=== PATIENT | female | born 1930 | race African-American/Black ===

== ENCOUNTER → 2017-09-01 | Outpatient (CLI) | payer MEDICARE, MEDICAID ==
[~2017-09-01] MED LIST: AMLO10TA4 PO; CHOL500010 PO; CYAN10009 PO; DOCU-150 PO; FOLI0.8T PO; LOP25 PO; METH2.5T PO; NAPR-679 PO; OMEP20CA10 PO; ROSU5TAB PO
== END | disposition home or self-care (01) ==
LOC: MAMMO 08:59
PROVIDERS: ATTEND Internal Medicine Nephrology
DX: Z12.31 Encounter for screening mammogram for malignant neoplasm of breast (principal)
CPT/HCPCS: 77067

== ENCOUNTER 2017-11-23 18:28 | Emergency (ER) | payer MEDICARE, MEDICAID ==
[~2017-11-23] VITALS: Ht 182.9 cm; Wt 77.0 kg
[2017-11-23] MEDS ORDERED: ONDANSETRON HCL 4MG/2ML VIAL IV STA (18:43)
[2017-11-23] MEDS ORDERED: SODIUM CHLORIDE 0.9% 500 ML IV ONE (18:43)
[2017-11-23] MEDS ORDERED: MECLIZINE 25MG TABLET PO ONE (18:45)
[2017-11-23 19:05] LABS: BASOPHILS % 0.9 % (0.0-2.0); CHLORIDE 106 mEq/L (98-107); EOSINOPHILS % 2.1 % (0.0-5.0); HEMOGLOBIN. 13.1 g/dL (12.0-16.0); LYMPHOCYTES % 14.3 % (20.0-50.0); MEAN CORPUSCULAR HEMOGLOBIN 27.1 pg (28.0-32.0); MEAN CORPUSCULAR VOLUME 82.8 fL (81.0-99.0); MEAN PLATELET VOLUME 8.5 fl (7.4-10.4); MONOCYTES % 6.9 % (2.0-8.0); NEUTROPHILS % 75.8 % (40.0-76.0); PLATELET 306 x1000/uL (130-400); RED BLOOD CELL COUNT 4.83 mill/uL (4.2-5.4); RED CELL DISTRIBUTION WIDTH 15.7 % (11.6-14.6)
[2017-11-23 19:07] LABS: INR 1.1; PROTHROMBIN TIME 11.4 sec (9.4-11.6)
[2017-11-23 23:00] VITALS: BP 155/77
== END 2017-11-23 23:12 | disposition home or self-care (01) ==
LOC: ER 18:28
DX: H81.399 Other peripheral vertigo, unspecified ear (principal); K21.9 Gastro-esophageal reflux disease without esophagitis; E78.00 Pure hypercholesterolemia, unspecified; I10 Essential (primary) hypertension; Z88.2 Allergy status to sulfonamides; Z88.0 Allergy status to penicillin; Z91.09 Other allergy status, other than to drugs and biological substances
CPT/HCPCS: 36415; 70450; 71045; 80053; 82962; 83880; 84484; 85025; 85610; 93005; 96361; 96374; 99285; J2405; J7030; J8597

== ENCOUNTER 2017-12-06 03:21 | Emergency (ER) | payer MEDICARE, MEDICAID ==
[~2017-12-06] VITALS: Ht 182.9 cm; Wt 80.0 kg
[2017-12-06] MEDS ORDERED: MECLIZINE 25MG TABLET PO ONE (04:30)
[2017-12-06] MEDS ORDERED: ONDANSETRON 4MG ODT PO ONE (04:30)
[2017-12-06 06:30] VITALS: BP 153/78
== END 2017-12-06 06:50 | disposition home or self-care (01) ==
LOC: ER 03:21
DX: R42 Dizziness and giddiness (principal); I10 Essential (primary) hypertension; E78.00 Pure hypercholesterolemia, unspecified; K21.9 Gastro-esophageal reflux disease without esophagitis; Z88.0 Allergy status to penicillin; Z88.2 Allergy status to sulfonamides; Z90.89 Acquired absence of other organs; Z79.899 Other long term (current) drug therapy
CPT/HCPCS: 99283; Q0162; J8597

== ENCOUNTER 2019-09-01 11:36 | Emergency (ER) | payer MEDICARE, MEDICAID ==
[~2019-09-01] VITALS: Ht 182.9 cm; Wt 77.2 kg
[~2019-09-01 11:36] MED LIST changes: +CYAN-50 PO; -CYAN10009 PO; -OMEP20CA10 PO; +OMEP20CA14 PO
[2019-09-01 14:18] LABS: BASOPHILS % 0.4 % (0.0-2.0); EOSINOPHILS % 0.7 % (0.0-5.0); HEMATOCRIT. 38.9 % (36.0-48.0); HEMOGLOBIN. 12.5 g/dL (12.0-16.0); LYMPHOCYTES % 10.1 % (20.0-50.0); MEAN CORPUSCULAR HEMOGLOBIN 26.9 pg (28.0-32.0); MEAN CORPUSCULAR VOLUME 83.9 fL (81.0-99.0); MEAN PLATELET VOLUME 8.7 fl (7.4-10.4); MONOCYTES % 9.5 % (2.0-8.0); NEUTROPHILS % 79.3 % (40.0-76.0); PLATELET 289 x1000/uL (130-400); RED BLOOD CELL COUNT 4.64 mill/uL (4.2-5.4); RED CELL DISTRIBUTION WIDTH 15.7 % (11.6-14.6)
[2019-09-01 14:24] LABS: CHLORIDE 103 mEq/L (98-107)
[2019-09-01 14:25] LABS: INR 1.1; PROTHROMBIN TIME 11.1 sec (9.6-11.0)
[2019-09-01 14:38] LABS: CLARITY URINE CLEAR (CLEAR); COLOR URINE YELLOW (YELLOW); KETONES URINE NEGATIVE (NEGATIVE); LEUKOCYTE ESTERASE URINE TRACE (NEGATIVE); NITRITE URINE NEGATIVE (NEGATIVE); OCCULT BLOOD URINE NEGATIVE (NEGATIVE); PROTEIN URINE NEGATIVE (NEGATIVE); SPECIFIC GRAVITY URINE 1.012 (1.005-1.030); UROBILINOGEN URINE 0.2 E.U./dL (0.2-1.0)
[2019-09-01 18:35] VITALS: BP 140/78
== END 2019-09-01 18:36 | disposition home or self-care (01) ==
LOC: ER 11:36
DX: N39.0 Urinary tract infection, site not specified (principal); R10.84 Generalized abdominal pain; Z88.2 Allergy status to sulfonamides; Z88.0 Allergy status to penicillin; Z91.041 Radiographic dye allergy status; Z91.048 Other nonmedicinal substance allergy status
CPT/HCPCS: 36415; 80053; 81003; 85025; 93005; 99284

== ENCOUNTER 2020-02-03 15:53 | Inpatient (IN) | payer MEDICARE, MEDICAID ==
[~2020-02-03] VITALS: Ht 182.9 cm; Wt 79.1 kg
[2020-02-03] MEDS ORDERED: ONDANSETRON HCL 4MG/2ML INJ IV STA (16:07)
[2020-02-03] MEDS ORDERED: VISCOUS LIDOCAINE 2% 15 ML UDC PO ONE (16:15)
[2020-02-03] MEDS ORDERED: FAMOTIDINE 20MG/2ML VIAL IV ONE (16:15)
[2020-02-03] MEDS ORDERED: ASPIRIN 81MG TABLET PO ONE (16:15)
[2020-02-03] MEDS ORDERED: MAGNESIUM/ALUMINUM HYDROXIDE/SIMETHICONE 30ML UDC PO ONE (16:15)
[2020-02-03 16:55] LABS: CHLORIDE 108 mEq/L (98-107)
[2020-02-03 17:04] LABS: BASOPHILS % 0.8 % (0.0-2.0); EOSINOPHILS % 1.8 % (0.0-5.0); HEMATOCRIT. 36.1 % (36.0-48.0); LYMPHOCYTES % 12.6 % (20.0-50.0); MEAN CORPUSCULAR HEMOGLOBIN 28.3 pg (28.0-32.0); MEAN CORPUSCULAR VOLUME 84.8 fL (81.0-99.0); MEAN PLATELET VOLUME 9.1 fl (7.4-10.4); MONOCYTES % 6.1 % (2.0-8.0); NEUTROPHILS % 78.7 % (40.0-76.0); PLATELET 221 x1000/uL (130-400); RED BLOOD CELL COUNT 4.26 mill/uL (4.2-5.4); RED CELL DISTRIBUTION WIDTH 15.4 % (11.6-14.6)
[2020-02-04] MEDS ORDERED: HYDROMORPHONE HCL/PF 2MG/ML CPJ IV PRN (09:15)
[2020-02-04] MEDS ORDERED: ACETAMINOPHEN 325MG TABLET PO PRN (09:15)
[2020-02-04] MEDS ORDERED: DOCUSATE SODIUM 100MG CAPSULE PO PRN (09:15)
[2020-02-04] MEDS ORDERED: CLONIDINE 0.1MG TABLET PO PRN (09:15)
[2020-02-04] MEDS: AMLODIPINE 10MG TABLET PO SCH (10:00)
[2020-02-04] MEDS: CYANOCOBALAMIN 1000MCG TABLET PO SCH (10:00)
[2020-02-04] MEDS ORDERED: METOPROLOL TARTRATE 25MG TABLET PO SCH (10:00)
[2020-02-04] MEDS: DOCUSATE SODIUM 100MG CAPSULE PO SCH (10:00)
[2020-02-04] MEDS: ENOXAPARIN 40MG/0.4ML SYR SUBCUT SCH (10:00)
[2020-02-04] MEDS: SODIUM CHLORIDE 0.9% INJ 3ML FLUSH IVF SCH ×2 (14:00→21:54)
[2020-02-04 15:20] VITALS: BP 139/83
[2020-02-04] MEDS ORDERED: DOCU250C69 PO (17:07)
[2020-02-04] MEDS ORDERED: FOLI-43 PO (17:07)
[2020-02-04] MEDS ORDERED: AMLO5TAB88 PO (17:07)
[2020-02-04 18:00] VITALS: BP 137/77
[2020-02-04 20:00] VITALS: BP 153/93
[2020-02-04] MEDS ORDERED: ATORVASTATIN CALCIUM 20MG TABLET PO SCH (21:00)
[2020-02-04] MEDS ORDERED: TEMAZEPAM 15MG CAPSULE PO PRN (21:15)
[2020-02-04] MEDS: PANTOPRAZOLE 40MG DR TABLET PO SCH (21:54)
[2020-02-04 22:00] VITALS: BP 131/72
[2020-02-05] VITALS (12 sets, daily range): BP systolic 97–145; BP diastolic 54–84
[2020-02-05] MEDS ORDERED: MECL-159 MT (02:39)
[2020-02-05] MEDS ORDERED: NIAC500C8 PO (02:39)
[2020-02-05] MEDS: SODIUM CHLORIDE 0.9% INJ 3ML FLUSH IVF SCH ×3 (06:00→22:00)
[2020-02-05 06:14] LABS: CHLORIDE 106 mEq/L (98-107)
[2020-02-05 06:17] LABS: BASOPHILS % 0.8 % (0.0-2.0); EOSINOPHILS % 1.3 % (0.0-5.0); HEMOGLOBIN. 11.9 g/dL (12.0-16.0); LYMPHOCYTES % 12.9 % (20.0-50.0); MEAN CORPUSCULAR HEMOGLOBIN 27.6 pg (28.0-32.0); MEAN CORPUSCULAR VOLUME 83.6 fL (81.0-99.0); MEAN PLATELET VOLUME 9.5 fl (7.4-10.4); MONOCYTES % 7.6 % (2.0-8.0); NEUTROPHILS % 77.4 % (40.0-76.0); PLATELET 232 x1000/uL (130-400); RED CELL DISTRIBUTION WIDTH 15.6 % (11.6-14.6)
[2020-02-05 06:23] LABS: LDL CHOLESTEROL 88 mg/dL (5-100)
[2020-02-05 06:26] LABS: HDL CHOLESTEROL 39 mg/dL (40-59)
[2020-02-05] MEDS: PANTOPRAZOLE 40MG DR TABLET PO SCH ×2 (06:46→20:44)
[2020-02-05] MEDS: DOCUSATE SODIUM 100MG CAPSULE PO SCH (08:36)
[2020-02-05] MEDS: AMLODIPINE 10MG TABLET PO SCH (08:37)
[2020-02-05] MEDS: CYANOCOBALAMIN 1000MCG TABLET PO SCH (08:37)
[2020-02-05] MEDS: ASPIRIN 81MG EC TABLET PO SCH (08:37)
[2020-02-05] MEDS: METOPROLOL TARTRATE 25MG TABLET PO SCH ×2 (08:38→20:43)
[2020-02-05] MEDS: ENOXAPARIN 40MG/0.4ML SYR SUBCUT SCH (09:43)
[2020-02-05] MEDS: CLOPIDOGREL 75MG TABLET PO SCH (09:43)
[2020-02-05] MEDS ORDERED: ATORVASTATIN CALCIUM 40MG TABLET PO SCH (21:00)
[2020-02-06] VITALS (11 sets, daily range): BP systolic 96–146; BP diastolic 44–79
[2020-02-06] MEDS: SODIUM CHLORIDE 0.9% INJ 3ML FLUSH IVF SCH (05:22)
[2020-02-06] MEDS: PANTOPRAZOLE 40MG DR TABLET PO SCH (06:39)
[2020-02-06] MEDS: CYANOCOBALAMIN 1000MCG TABLET PO SCH (09:19)
[2020-02-06] MEDS: DOCUSATE SODIUM 100MG CAPSULE PO SCH (09:19)
[2020-02-06] MEDS: CLOPIDOGREL 75MG TABLET PO SCH (09:19)
[2020-02-06] MEDS: AMLODIPINE 10MG TABLET PO SCH (09:19)
[2020-02-06] MEDS: ENOXAPARIN 40MG/0.4ML SYR SUBCUT SCH (09:19)
[2020-02-06] MEDS: ASPIRIN 81MG EC TABLET PO SCH (09:20)
[2020-02-06] MEDS: METOPROLOL TARTRATE 25MG TABLET PO SCH (09:23)
[2020-02-06 13:02] LABS: CREATINE KINASE MB FRACTION 1.3 ng/mL (0.5-3.6)
== END 2020-02-06 15:50 | disposition home or self-care (01) | DRG 392 ==
LOC: ER 15:53 → MICUSO 17:48 → 5EST 02-04 14:50
PROVIDERS: ADMIT Internal Medicine Nephrology; ATTEND Internal Medicine Nephrology
DX: K21.9 Gastro-esophageal reflux disease without esophagitis (principal); I10 Essential (primary) hypertension; E78.5 Hyperlipidemia, unspecified; B02.9 Zoster without complications; E78.00 Pure hypercholesterolemia, unspecified; F41.9 Anxiety disorder, unspecified; F45.21 Hypochondriasis; I44.4 Left anterior fascicular block; M19.90 Unspecified osteoarthritis, unspecified site; M06.9 Rheumatoid arthritis, unspecified; I08.0 Rheumatic disorders of both mitral and aortic valves; R07.89 Other chest pain; I27.20 Pulmonary hypertension, unspecified; R61 Generalized hyperhidrosis; Z87.440 Personal history of urinary (tract) infections; Z90.49 Acquired absence of other specified parts of digestive tract; Z88.0 Allergy status to penicillin; Z88.2 Allergy status to sulfonamides; Z79.899 Other long term (current) drug therapy; Z91.041 Radiographic dye allergy status; Z79.82 Long term (current) use of aspirin
CPT/HCPCS: 36415; 71045; 78580; 80048; 80053; 80061; 82550; 82553; 83735; 83880; 84100; 84484; 85025; 93005; 93306; 93970; 99285; J1650; J2405; J3490